=== PATIENT | male | born 1970 | race Caucasian/White ===

== ENCOUNTER → 2016-12-21 | Outpatient (CLI) | payer OTHER ==
[2016-12-21 12:35] LABS: HEMOGLOBIN 14.9 gm/dl (14.0-17.5); RED BLOOD COUNT 5.09 M/UL (4.20-5.50); WHITE BLOOD COUNT 5.9 K/UL (4.5-11.0)
[2016-12-21 12:50] LABS: BUN/CREATININE RATIO 11 (0-10)
== END ==
LOC: LAB 11:40
PROVIDERS: Nurse Practitioner
DX: M79.672 Pain in left foot (principal)
CPT/HCPCS: 36415; 73610; 73630; 80053; 80061; 84436; 84443; 84480; 84550; 85025